=== PATIENT | male | born 1965 | race Caucasian/White ===

== ENCOUNTER 2024-07-16 18:55 | Emergency (ER) | payer MEDICAID, SELFPAY ==
[2024-07-16] VITALS (42 sets, daily range): BP systolic 145–231; BP diastolic 95–146; PULSE 66–95; RESP 12–52; TEMP 36.3; O2SAT 96–100; BMI 27.1
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
[2024-07-16 19:13] LABS: Add Manual Diff / Slide Review NO; Basophils Absolute Auto 0 /uL (0-100); Basophils Percent Auto 0.6 % (0-2); Eosinophils Absolute Auto 100 /uL (0-450); Hematocrit 51.8 % (41-53); Hemoglobin 17.8 g/dL (13.5-17.5); Lymphocytes Absolute Auto 2100 /uL (1100-4500); Lymphocytes Percent Auto 30.6 % (25-40); Mean Corpuscular HGB Conc 34.4 % (30-36); Mean Corpuscular Hemoglobin 31.6 PG (26-34); Mean Corpuscular Volume 91.8 fL (80-100); Monocytes Absolute Auto 600 /uL (0-900); Monocytes Percent Auto 9.3 % (3-14); Neutrophils Absolute Auto 4000 /uL (1500-7000); Neutrophils Percent Auto 57.5 % (50-75); Platelet Count 200 X10^3/uL (150-400); Red Blood Cell Count 5.64 X10^6/uL (4.5-5.9); Red Cell Distribution Width 13.3 % (11.6-14.8)
[2024-07-16] MEDS: fentaNYL 1,000 MCG in DEXTROSE 5% IN WATER 230 ML 22.566 MCG IV (19:15)
[2024-07-16 19:18] LABS: Appearance Urine UA CLEAR; Bilirubin Urine UA NEGATIVE (NEGATIVE); Color Urine UA YELLOW; Glucose Urine UA NEGATIVE (Negative); Ketones Urine UA NEGATIVE (NEGATIVE); Leukocyte Esterase Urine UA 1+ (NEGATIVE); Nitrite Urine UA POSITIVE (Negative); Occult Blood Urine UA 1+ (Negative); Protein Urine UA TRACE (Negative); Specific Gravity Urine UA >=1.030 (1.000-1.035); Urobilinogen Urine UA 0.2 E.U./dL (0.2); pH Urine UA 5.5 (4.5-8.0)
[2024-07-16 19:18] LABS: INR 1.1 (0.9-1.3); Prothrombin Time 12.9 SECONDS (9.4-12.5)
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
[2024-07-16 19:23] LABS: Alanine Aminotransferase 30 IU/L (<50); Albumin 4.1 g/dL (3.5-5.0); Albumin Globulin Ratio 1.3 (1.0-2.8); Alkaline Phosphatase 68 U/L (38-126); Aspartate Aminotransferase 35 IU/L (17-59); BUN Creatinine Ratio 12.7 (6-22); Bilirubin Total 1.6 mg/dL (0.2-1.3); Blood Urea Nitrogen 17 mg/dL (9-20); Calcium 8.7 mg/dL (8.4-10.2); Carbon Dioxide 19 mmol/L (22-32); Chloride 107 mmol/L (98-107); Estimated Glomerular Filt Rate > 60 mL/min (>60); Ethanol (ETOH) < 10 mg/dL; Globulin 3.2 g/dL (1.7-4.1); Glucose 132 mg/dL (70-100); HEMOLYSIS 54 (0-50); Potassium 3.6 mmol/L (3.4-5.1); Sodium 138 mmol/L (137-145); Total Protein 7.3 g/dL (6.3-8.2)
[2024-07-16 19:27] LABS: Bacteria Urine Many (>30); Culture Indicated Urine Specimen Cultured; RBC Urine 0-1/HPF (0-5/HPF); Squamous Epithelial Cell Urine 0-1 /HPF (0-5/HPF); Urine Volume 10mL (spun); WBC Urine 10-30/HPF (0-5/HPF)
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
[2024-07-16 19:31] LABS: UR Morphine/Opiate cutoff 300 Negative (Negative); Ur Creatinine Normal (Normal); Ur Specific Gravity Normal (Normal); Urine Amphetamines Positive (Negative); Urine Barbiturates Negative (Negative); Urine Benzodiazepines Negative (Negative); Urine Cocaine Negative (Negative); Urine MDMA Positive (Negative); Urine Methadone Negative (Negative); Urine Methamphetamines Positive (Negative); Urine Oxycodone Negative (Negative); Urine Phencyclidine Negative (Negative); Urine Tetrahydrocannabinol Negative (Negative); Urine Tricyclic Antidepressant Negative (Negative); Urine pH Normal (Normal)
[2024-07-16 19:40] LABS: Lactate (Lactic Acid) 1.5 mmol/L (0.7-2.1)
[2024-07-16 19:43] LABS: Lipase 98 U/L (23-300); PTT Partial Thromboplastin Tim 30 SECONDS (25.1-36.5)
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
[2024-07-16] MEDS: TET,DIPH,PERTUSS(ACELL),VAC/PF 0.5 ML SYRINGE IM (19:56)
[2024-07-16 20:03] LABS: Base Excess ABG -3.5 mmol/L (-2-3); Delivery System Adult Ventilator; HCO3 ABG 26 mmol/L (23-27); Oxygen Saturation ABG 100 % (95-100); PEEP 5; PO2 ABG 248 mmHg (80-100); Respiratory Rate 16; TCO2 ABG 25 mmol/L (23-27); pH ABG 7.23 (7.35-7.45)
[2024-07-16] MEDS: cefTRIAXone 1,000 MG in SODIUM CHLORIDE 0.9% 100 ML 200 MG IV (20:03)
[2024-07-16] MEDS: propofoL 1,000 MG/100 ML VIAL 21.664 MG IV (20:03)
--- NOTE | 2024-07-16 20:05 | PC.NURSE ---
Addendum entered by Trupti Hussein R.N. 07/16/24 20:08: prior to departure, pt received zofran per JUL. and Keppra was given to EVERARDO QUEZADA to give in flight. Original Note: Report given to EVERARDO Bullard. Pt left with Propofol, fentanyl, and rocephin infusing. Care relinquished at this time.
--- NOTE | 2024-07-16 20:08 | PC.NURSE ---
Received a contact number from [facility] for a friend Mary Coley that he lives with. Contacted her and received a sister's number in [place]. Pts sister Kyra contacted and informed about her brothers status and transfer to [facility].
[2024-07-16] MEDS: ONDANSETRON 4 MG/2 ML INJ IV (20:11)
[2024-07-16] MEDS: levETIRAcetam 1,000 MG in SODIUM CHLORIDE 0.9% 100 ML 440 MG IV (20:11)
== END 2024-07-16 20:25 | disposition short-term general hospital (02) ==
PROVIDERS: Emergency Provider Emergency Medicine
DX: S06.6XAA Traumatic subarachnoid hemorrhage with loss of consciousness status unknown, initial encounter (principal); S02.611A Fracture of condylar process of right mandible, initial encounter for closed fracture; S02.412A LeFort II fracture, initial encounter for closed fracture; S02.32XA Fracture of orbital floor, left side, initial encounter for closed fracture; S02.411A LeFort I fracture, initial encounter for closed fracture; R40.2431 Glasgow coma scale score 3-8, in the field [EMT or ambulance]; F15.10 Other stimulant abuse, uncomplicated; R22.0 Localized swelling, mass and lump, head; V29.99XA Rider (driver) (passenger) of other motorcycle injured in unspecified traffic accident, initial encounter; N30.00 Acute cystitis without hematuria; Z23 Encounter for immunization; K74.60 Unspecified cirrhosis of liver
CPT/HCPCS: 36415; 36600; 70450; 70486; 71045; 71275; 72020; 72125; 72170; 74177; 80053; 80305; 80320; 81001; 83605; 83690; 85025; 85610; 85730; 86850; 86900; 86901; 87040; 87077; 87086; 87186; 90471; 96365; 96368; 96375; 99152; 99153; 99285; 99291; 99292; 90715; G0390; J0696; J1953; J2405; J2704; J3010; Q9967